=== PATIENT | male | born 1980 | race Caucasian/White ===

== ENCOUNTER 2017-06-16 15:30 | Outpatient (CLI) | payer OTHER | END 2017-06-16 15:31 | disposition home or self-care (01) | LOC: RAD 15:30 | DX: R10.12 Left upper quadrant pain (principal); K52.89 Other specified noninfective gastroenteritis and colitis ==

== ENCOUNTER → 2017-06-16 | Outpatient (CLI) | payer OTHER ==
[~2017-06-16] VITALS: Ht 152.4 cm; Wt 80.7 kg
[~2017-06-16] MED LIST: BENADRYL50 MG PO; MEDROL4 MG PO; OSTERA TABLET1 EACH; SYNTHROID50 MCG; SYNTHROID50 MCG PO; SYNTHROID75 MCG PO; ZITHROMAX200 MG PO; ZYRTEC10 MG PO
== END | disposition home or self-care (01) ==
LOC: PPHC 14:23
DX: R10.12 Left upper quadrant pain (principal)

== ENCOUNTER 2017-06-21 06:44 | Outpatient (CLI) | payer OTHER | END 2017-06-21 07:06 | disposition home or self-care (01) | LOC: LAB 06:44 | DX: K57.92 Diverticulitis of intestine, part unspecified, without perforation or abscess without bleeding (principal) ==

== ENCOUNTER 2017-07-20 14:54 | Outpatient (CLI) | payer OTHER | END 2017-07-20 15:03 | disposition home or self-care (01) | LOC: SONOGRAMA 14:54 | DX: R10.12 Left upper quadrant pain (principal) ==

== ENCOUNTER 2018-01-26 06:23 | Outpatient (CLI) | payer OTHER | END 2018-01-26 06:34 | disposition home or self-care (01) | LOC: LAB 06:23 | DX: E03.8 Other specified hypothyroidism (principal); E78.4 Other hyperlipidemia ==

== ENCOUNTER 2018-07-31 06:20 | Outpatient (CLI) | payer OTHER | END 2018-07-31 06:27 | disposition home or self-care (01) | LOC: LAB 06:20 | DX: R39.9 Unspecified symptoms and signs involving the genitourinary system (principal); E03.8 Other specified hypothyroidism ==

== ENCOUNTER → 2018-08-24 | Outpatient (CLI) | payer OTHER | END | disposition home or self-care (01) | LOC: RAD 14:48 | DX: M25.551 Pain in right hip (principal) ==

== ENCOUNTER → 2019-02-12 06:24 | Outpatient (CLI) | payer OTHER | END | disposition home or self-care (01) | LOC: LAB 06:24 | DX: E04.1 Nontoxic single thyroid nodule (principal); Z11.4 Encounter for screening for human immunodeficiency virus [HIV]; Z11.3 Encounter for screening for infections with a predominantly sexual mode of transmission; E03.8 Other specified hypothyroidism; Z00.00 Encounter for general adult medical examination without abnormal findings; Z13.6 Encounter for screening for cardiovascular disorders; Z80.8 Family history of malignant neoplasm of other organs or systems ==

== ENCOUNTER 2019-03-06 10:53 | Outpatient (CLI) | payer OTHER | END 2019-03-06 11:04 | disposition home or self-care (01) | LOC: LAB 10:53 | DX: E03.8 Other specified hypothyroidism (principal); Z00.00 Encounter for general adult medical examination without abnormal findings; Z13.6 Encounter for screening for cardiovascular disorders; Z80.8 Family history of malignant neoplasm of other organs or systems; Z12.5 Encounter for screening for malignant neoplasm of prostate; E04.1 Nontoxic single thyroid nodule; Z11.3 Encounter for screening for infections with a predominantly sexual mode of transmission ==

== ENCOUNTER 2019-04-03 13:51 | Outpatient (CLI) | payer OTHER | END 2019-04-03 14:00 | disposition home or self-care (01) | LOC: SONOGRAMA 13:51 | DX: E04.1 Nontoxic single thyroid nodule (principal); E03.8 Other specified hypothyroidism ==

== ENCOUNTER 2019-10-01 06:22 | Outpatient (CLI) | payer OTHER | END 2019-10-01 06:27 | disposition home or self-care (01) | LOC: LAB 06:22 | DX: E03.8 Other specified hypothyroidism (principal) ==

== ENCOUNTER 2020-03-06 13:00 | Outpatient (CLI) | payer OTHER | END 2020-03-06 15:00 | disposition home or self-care (01) | LOC: PPH VACUNA 13:00 | DX: Z23 Encounter for immunization (principal) ==

== ENCOUNTER 2020-04-18 07:12 | Outpatient (CLI) | payer OTHER | END 2020-04-18 15:31 | disposition home or self-care (01) | LOC: LAB 07:12 | PROVIDERS: ATTEND General Practice | DX: E78.2 Mixed hyperlipidemia (principal) ==

== ENCOUNTER 2020-05-18 21:12 | Emergency (ER) | payer OTHER ==
[~2020-05-18] VITALS: Ht 170.2 cm; Wt 77.1 kg
[2020-05-18] MEDS ORDERED: MEDROLPACK PO (22:34)
[2020-05-18] MEDS ORDERED: DOLOGEN CAPLET1 EACH PO (22:34)
[2020-05-18] MEDS ORDERED: ZITHROMAX500 MG PO (22:34)
== END 2020-05-18 23:18 | disposition home or self-care (01) ==
LOC: ER 21:12
DX: U07.1 COVID-19 (principal); B34.9 Viral infection, unspecified

== ENCOUNTER 2020-06-26 06:31 | Outpatient (CLI) | payer OTHER ==
[~2020-06-26 06:31] MED LIST changes: +DOLOGEN CAPLET1 EACH PO; +MEDROLPACK PO; +ZITHROMAX500 MG PO
== END 2020-06-26 06:41 | disposition home or self-care (01) ==
LOC: LAB 06:31
DX: E03.8 Other specified hypothyroidism (principal); I10 Essential (primary) hypertension; E78.49 Other hyperlipidemia; N39.0 Urinary tract infection, site not specified; E55.9 Vitamin D deficiency, unspecified; E11.65 Type 2 diabetes mellitus with hyperglycemia; D50.8 Other iron deficiency anemias; A64 Unspecified sexually transmitted disease